=== PATIENT | male | born 1975 | race Caucasian/White ===

== ENCOUNTER 2017-09-16 14:02 | Emergency (ER) | payer OTHER ==
[~2017-09-16] VITALS: Ht 175.3 cm; Wt 75.0 kg
[2017-09-16 14:07] VITALS: BP 148/91
[2017-09-16] MEDS ORDERED: MUPI22OI30 TOP (14:22)
== END 2017-09-16 14:30 | disposition home or self-care (01) ==
LOC: ER 14:02
DX: L03.115 Cellulitis of right lower limb (principal); F17.200 Nicotine dependence, unspecified, uncomplicated; F12.90 Cannabis use, unspecified, uncomplicated; Z59.0 Homelessness; Z60.2 Problems related to living alone; Z56.0 Unemployment, unspecified; Z79.2 Long term (current) use of antibiotics
CPT/HCPCS: 99283

== ENCOUNTER 2017-12-03 10:14 | Emergency (ER) | payer OTHER ==
[~2017-12-03] VITALS: Ht 175.3 cm; Wt 72.0 kg
[2017-12-03 10:32] VITALS: BP 112/80
[2017-12-03] MEDS ORDERED: IBUP-1984 PO (11:16)
== END 2017-12-03 11:30 | disposition home or self-care (01) ==
LOC: ER 10:15
DX: S20.211A Contusion of right front wall of thorax, initial encounter (principal); F12.10 Cannabis abuse, uncomplicated; Z59.0 Homelessness; W22.8XXA Striking against or struck by other objects, initial encounter; Y93.89 Activity, other specified; Y92.89 Other specified places as the place of occurrence of the external cause; Y99.8 Other external cause status
CPT/HCPCS: 71045; 99283

== ENCOUNTER 2018-10-05 18:05 | Emergency (ER) | payer MEDICAID ==
[2018-10-05 18:12] VITALS: BP 114/77
== END 2018-10-05 18:53 | disposition home or self-care (01) ==
LOC: ER 18:05
DX: S01.01XD Laceration without foreign body of scalp, subsequent encounter (principal); W26.8XXD Contact with other sharp object(s), not elsewhere classified, subsequent encounter
CPT/HCPCS: 99281

== ENCOUNTER 2018-10-14 06:35 | Emergency (ER) | payer MEDICAID ==
[~2018-10-14] VITALS: Ht 175.3 cm; Wt 66.5 kg
[2018-10-14 06:39] VITALS: BP 131/83
[2018-10-14] MEDS ORDERED: mupirocin 2% cream 15gm TP SCH (08:05)
[2018-10-14] MEDS ORDERED: mupirocin 2% cream 15gm TP ONE (08:05)
[2018-10-14] MEDS ORDERED: mupirocin 2% ointment 22GM TP ONE (08:20)
== END 2018-10-14 08:40 | disposition home or self-care (01) ==
LOC: ER 06:35
DX: L98.8 Other specified disorders of the skin and subcutaneous tissue (principal); F15.90 Other stimulant use, unspecified, uncomplicated; F12.90 Cannabis use, unspecified, uncomplicated; F10.99 Alcohol use, unspecified with unspecified alcohol-induced disorder; Z59.0 Homelessness; Z56.0 Unemployment, unspecified; Y90.9 Presence of alcohol in blood, level not specified
CPT/HCPCS: 99282

== ENCOUNTER 2018-11-14 03:13 | Emergency (ER) | payer MEDICAID ==
[~2018-11-14] VITALS: Ht 175.3 cm; Wt 70.5 kg
[2018-11-14 03:16] VITALS: BP 118/76
--- NOTE | 2018-11-14 03:43 | NUR ---
Pt reports pain to his wound on left forearm of 8 out of 10. Reports the wound first noticed 3-4 days ago and he then picked at it and used warm compress after a few days. Reports it is much worse now.
--- NOTE | 2018-11-14 04:15 | NUR ---
pt awaiting stacy emmanuel. currently sleeping on [facility]
[2018-11-14] MEDS ORDERED: DOXY100C2 PO (05:39)
== END 2018-11-14 06:11 | disposition home or self-care (01) ==
LOC: ER 03:13
DX: L03.114 Cellulitis of left upper limb (principal); F17.200 Nicotine dependence, unspecified, uncomplicated; F12.90 Cannabis use, unspecified, uncomplicated; Z59.0 Homelessness; Z56.0 Unemployment, unspecified
CPT/HCPCS: 99283

== ENCOUNTER 2020-11-25 19:25 | Emergency (ER) | payer MEDICAID ==
[~2020-11-25] VITALS: Ht 175.3 cm; Wt 68.2 kg
[2020-11-25] MEDS ORDERED: PRED20TA PO (19:44)
[2020-11-25] MEDS ORDERED: ALBU6.7H9 INH (19:44)
[2020-11-25 20:00] VITALS: BP 123/83
== END 2020-11-25 20:55 | disposition home or self-care (01) ==
LOC: ER 19:26
DX: U07.1 COVID-19 (principal); J06.9 Acute upper respiratory infection, unspecified; R06.2 Wheezing; R05 Cough; R51.9 Headache, unspecified; R06.00 Dyspnea, unspecified; F12.90 Cannabis use, unspecified, uncomplicated; Z72.89 Other problems related to lifestyle; Z60.2 Problems related to living alone; Z56.0 Unemployment, unspecified; Z59.0 Homelessness; Z79.899 Other long term (current) drug therapy
CPT/HCPCS: 36415; 71045; 99284; U0003; U0005